=== PATIENT | male | born 1980 | race Caucasian/White ===

== ENCOUNTER 2021-09-29 14:01 | Emergency (ER) | payer BC ==
[~2021-09-29] VITALS: Wt 81.6 kg
[2021-09-29 16:03] LABS: BILIRUBIN Negative (Negative); BLOOD Negative (Negative); CLARITY Clear (Clear); COLOR Yellow (Yellow); GLUCOSE Negative (Negative); KETONE Negative (Negative); LEUKO ESTERASE 1+ (Negative); NITRITE Negative (Negative); PH 6.5 (4.5-8.0); UROBILINOGEN 0.2 E.U./dl (0.0-1.0)
[2021-09-29 16:20] LABS: BACTERIA 3+; MUCOUS 2+
== END 2021-09-29 16:32 | disposition home or self-care (01) ==
LOC: ED 14:01
PROVIDERS: Physician Assistant
DX: Z20.2 Contact with and (suspected) exposure to infections with a predominantly sexual mode of transmission (principal)